=== PATIENT | male | born 2000 | race Caucasian/White ===

== ENCOUNTER 2022-05-05 12:35 | Outpatient (CLI) | payer OTHER, SELFPAY ==
--- NOTE | 2022-05-05 11:30 | DI.RAD_ITS ---
Exam(s) XR CHEST 2V PA LATERAL EXAM: XR CHEST 2V PA LATERAL CLINICAL HISTORY: hx of asthma, chronic cough/wheezing U06.09 DYSPNEA U09.9 POST COVID TECHNIQUE: 2D digital imaging was performed. COMPARISON: CR CHEST 2 VIEWS PA,LAT from 02/12/2017 FINDINGS: HEART: Normal size. Aorta: Not dilated. PULMONARY VASCULATURE: Normal. LUNGS: Clear. PLEURAL SPACE: No pleural effusion or pneumothorax. BONE:Unremarkable for age. IMPRESSION: No acute abnormality. DATA REPOSITORY: RADIATION DOSE DELIVERED:
== END 2022-05-05 12:55 ==
LOC: DI 12:36
PROVIDERS: PCP Pediatrics; Visit Provider Pediatrics
DX: R06.09 Other forms of dyspnea (principal); U09.9 Post COVID-19 condition, unspecified
CPT/HCPCS: 71046

== ENCOUNTER 2022-06-19 16:42 | Outpatient (REF) | payer OTHER, SELFPAY ==
[2022-06-19 12:55] LABS: Abs Immature Grans 0.02 10^3/uL (0.0-0.06); Absolute Basophil Count 0.06 10^3/uL (0.0-0.2); Absolute Eosinophil Count 0.24 10^3/uL (0.0-0.7); Absolute Lymphocyte Count 2.21 10^3/uL (1.2-3.4); Absolute Monocyte Count 0.63 10^3/uL (0.1-0.8); Absolute Neutrophil Count 4.84 10^3/uL (1.2-6.7); Basophils % 0.8; HGB 17.3 g/dL (13.5-17.5); Immature Grans % 0.3; Lymphocytes % 27.6; MCHC 33.9 % (32.0-36.0); MCV 91 fL (80-95); MPV 10.1 fL (8.0-11.0); Monocytes % 7.9; Neutrophils % 60.4; Platelet Count 272 10^3/uL (130-400); RBC 5.58 10^6/uL (4.36-5.78); RDW-SD 40.4 fL
[2022-06-19 13:22] LABS: Vitamin D 25 Total 25.1 ng/mL (30-100)
[2022-06-19 13:27] LABS: TSH (W/Ref FT4) 0.73 uIU/mL (0.36-3.74); Vitamin B12 828 pg/mL (193-986)
[2022-06-21 09:11] LABS: IgE 707 IU/mL (<158)
== END 2022-06-19 16:43 | disposition home or self-care (01) ==
LOC: LBN 16:42
PROVIDERS: PCP Pediatrics; Visit Provider Student in an Organized Health Care Education/Training Program
DX: U09.9 Post COVID-19 condition, unspecified (principal); J45.30 Mild persistent asthma, uncomplicated; E55.9 Vitamin D deficiency, unspecified
CPT/HCPCS: 82306; 82533; 82607; 82785; 84443; 85025